=== PATIENT | male | born 1970 | race Caucasian/White ===

== ENCOUNTER → 2020-01-29 12:29 | Outpatient (ROUT) | payer OTHER, SELFPAY ==
[2020-01-29 12:45] LABS: Alanine Aminotransferase 43 IU/L (<50); Aspartate Aminotransferase 33 IU/L (17-59); Estimated Glomerular Filt Rate > 60.0 mL/min (>60)
[2020-01-29 12:50] LABS: Vancomycin Trough 8.3 ug/mL (10-20)
== END ==
PROVIDERS: PCP Specialist; Visit Provider Internal Medicine
DX: I33.0 Acute and subacute infective endocarditis (principal); T80.211A Bloodstream infection due to central venous catheter, initial encounter
CPT/HCPCS: 80202; 82565; 84450; 84460

== ENCOUNTER → 2020-02-05 13:02 | Outpatient (ROUT) | payer OTHER, SELFPAY ==
[2020-02-05 13:17] LABS: Add Manual Diff / Slide Review NO; Basophils Absolute Auto 0 /uL (0-100); Basophils Percent Auto 0.5 % (0-2); Eosinophils Absolute Auto 100 /uL (0-450); Eosinophils Percent Auto 4.1 % (2-4); Hemoglobin 12.2 g/dL (13.5-17.5); Lymphocytes Absolute Auto 600 /uL (1100-4500); Lymphocytes Percent Auto 26.9 % (25-40); Monocytes Absolute Auto 500 /uL (0-900); Monocytes Percent Auto 23.4 % (3-14); Neutrophils Absolute Auto 900 /uL (1500-7000); Neutrophils Percent Auto 45.1 % (50-75); Platelet Count 185 X10^3/uL (150-400); Red Blood Cell Count 4.21 X10^6/uL (4.5-5.9); Red Cell Distribution Width 14.6 % (11.6-14.8); White Blood Cell Count 2.1 X10^3/uL (4.5-11.0)
== END ==
PROVIDERS: PCP Specialist; Visit Provider Internal Medicine
DX: I33.0 Acute and subacute infective endocarditis (principal); T80.211A Bloodstream infection due to central venous catheter, initial encounter
CPT/HCPCS: 85025

== ENCOUNTER 2020-05-31 21:22 | Emergency (ER) | payer OTHER, SELFPAY ==
[2020-05-31 21:43] VITALS: BP 120/69; PULSE 80; RESP 15; TEMP 36.9; O2SAT 97; BMI 27.9
--- NOTE | 2020-05-31 22:04 | DI.CT.S_ITS ---
PROCEDURE: CT HEAD/BRAIN WO CON INDICATIONS: hit head on coumadin TECHNIQUE: Noncontrast 4.5 mm thick angled axial sections acquired from the foramen magnum to the vertex, with coronal and sagittal reformats. For radiation dose reduction, the following was used: automated exposure control, adjustment of mA and/or kV according to patient size. COMPARISON: None. FINDINGS: Image quality: Excellent. CSF spaces: Basal cisterns are patent. No extra-axial fluid collections. Ventricles are normal in size and shape. Brain: No midline shift. No intracranial masses or hemorrhage. Ortega-white matter interface is normal. Skull and face: Calvarium and visualized facial bones are intact, without suspicious lesions. Sinuses: Visualized sinuses and mastoids are clear. IMPRESSION: No acute intracranial abnormality. No significant discrepancy with the mini shifter radiology preliminary report. Dictated by: Hedy Clements M.D. on 06/01/2020 at 7:13 Approved by: Hedy Clements M.D. on 06/01/2020 at 7:14
[2020-05-31 22:20] LABS: INR 1.9 (0.9-1.3); Prothrombin Time 21.6 SECONDS (10.1-12.7)
[2020-05-31 23:19] VITALS: PULSE 64; O2SAT 99
[2020-05-31 23:30] VITALS: BP 111/63; PULSE 70; RESP 13; O2SAT 97
--- NOTE | 2020-06-01 06:48 | ED_ITS ---
HPI - Head Injury General Chief complaint: Head Injury Stated complaint: hit head, on blood thinners, post mult heart surg Time Seen by Provider: 05/31/20 21:23 Source: patient Mode of arrival: Ambulatory Limitations: no limitations History of Present Illness HPI Narrative: 49-year-old male nonsmoker on Coumadin for a mechanical valve presents for evaluation of an accidental head injury just prior to arrival. He stood up too quickly and struck his head on the cabinetry and developed a small goose egg. He has full recall and denies any loss of consciousness nor nausea or vomiting. He denies any neurologic symptoms such as blurred vision, trouble with speech or numbness, tingling or weakness. He denies any other injury. MD Complaint: head injury Onset (ago): hour(s) Mechanism of Injury: other Place: home Loss of Consciousness: no Location of injury: parietal Severity: mild Quality: aching Radiation: none Other Injuries: none Context: on warfarin Associated symptoms: denies other symptoms Related Data Home Medications Medication Instructions Recorded Confirmed amlodipine [Norvasc] 5 mg PO QPM #0 05/30/17 ascorbic acid (vitamin C) 500 mg PO QPM #0 05/30/17 metoprolol succinate [Toprol XL] 12.5 mg PO QPM #0 05/30/17 multivitamin [Multiple Vitamins] 1 tab PO QPM #0 05/30/17 omega 4-git-wsb-fish oil [Fish Oil] 1,000 mg PO QPM #0 05/30/17 vitamin B complex [B 1 tab PO QPM #0 05/30/17 Complex-Vitamin B12] Allergies Allergy/AdvReac Type Severity Reaction Status Date / Time vancomycin AdvReac Verified 05/31/20 21:48 Review of Systems Constitutional Constitutional: Denies chills, Denies fatigue, Denies fever(s), Denies frequent falls, Denies lethargy and Denies weakness Eyes Eyes: Denies change in vision, Denies eye discharge, Denies irritation and Denies loss of vision ENT Ears, Nose, Mouth, and Throat: Denies change in voice, Denies dizziness, Denies neck pain, Denies sore throat and Denies throat swelling Cardiovascular Cardiovascular: Denies chest pain, Denies irregular heart rhythm, Denies lightheadedness, Denies palpitations, Denies dyspnea, Denies dyspnea on exertion and Denies orthopnea Respiratory Respiratory: Denies cough, Denies dyspnea, Denies dyspnea on exertion and Denies wheezing Gastrointestinal Gastrointestinal: Denies abdominal pain, Denies change in bowel habits, Denies diarrhea, Denies nausea and Denies vomiting Musculoskeletal Musculoskeletal: Denies neck pain and Denies numbness Integumentary/Breasts Skin/Breast: Denies pruritus, Denies erythema, Denies rash, Reports skin swelling and Denies wounds Neurologic Neurologic: Denies behavioral changes, Denies confusion, Denies dizziness, Denies frequent falls, Denies loss of vision, Denies numbness and Denies weakness Psychiatric Psychiatric: Denies anxiety, Denies behavioral changes, Denies confusion, Denies depression, Denies homicidal ideation and Denies suicidal ideation Endocrine Endocrine: Denies fatigue, Denies flushing and Denies palpitations Hematologic/Lymphatic Hematologic/Lymphatic: Denies easy bruising Allergic/Immunologic Allergic/Immunologic: Denies urticaria, Denies throat swelling and Denies wheezing Patient History Social History Smoking Status: Never smoker Smoking Status: Never smoker alcohol intake frequency: a few times a month Substance Use Type: does not use Exam Narrative Exam Narrative: GEN: AOx3 and in mild distress, GCS 15 HEAD: small contusion noted on R parietal region. No abrasion or laceration. No evidence of depressed skull fracture EYES: Pupils are equal, round, and reactive to light and accommodation. Extraoccular muscles are intact bilaterally. There is no subconjunctival hemorrhage or exudate. CHEST: Lungs are clear to auscultation bilaterally and free of wheezes, rales, or rhonchi. Heart rate is regular rhythm, there are no murmurs, clicks, rubs, or gallops. There is no chest wall tenderness. ABD: Abdomen is soft and nontender. There is no guarding or rebound. Bowel sounds are normal in all 4 quadrants. There is no mass or organomegaly. EXT: Full painless ROM of all extremities with no loss of sensation or strength. SKIN: Warm, pink, and dry. No erythema or rash Initial Vital Signs Initial Vital Signs: Vital Signs Temperature 98.5 F 05/31/20 21:43 Pulse Rate 80 05/31/20 21:43 Respiratory Rate 15 11/17/20 21:43 Blood Pressure 120/69 11/17/20 21:43 Pulse Oximetry 97 05/31/20 21:43 Course Orders Ordered: ED Orders 05/31/20 22:04 CT head/brain wo con Stat 05/31/20 22:05 Prothrombin Time INR Stat Vital Signs Vital signs: Vital Signs - 8 hr 05/31/20 23:19 05/31/20 23:30 Pulse Rate 64 70 Respiratory Rate 13 Blood Pressure 111/63 Pulse Oximetry 99 97 MDM - Head Injury Lab Data Labs: Lab Results 05/31/20 Range/Units 22:05 PT 21.6 H (10.1-12.7) SECONDS INR 1.9 H (0.9-1.3) Imaging Data CT scan - head: Radiologist's Impression: No bleed Discharge Plan Departure Patient Disposition: Home Clinical Impression: Elevated INR (international normalized ratio) due to prior anticoagulant medication ingestion Contusion of scalp Qualifiers: Encounter type: initial encounter Qualified Code(s): S00.03XA - Contusion of s calp, initial encounter Instructions: DI for Contusion Activity Restrictions/Additional Instructions: *You have been diagnosed with [minor scalp contusion while on Coumadin. Your CT scan was very reassuring. Today's INR is 1.9] *What to do: *Continue to take medications as directed *Follow up with your primary care provider in 2-3 days, call for an appointment. Let them know you were seen in the Emergency Department and that we ask that you be seen in follow up *Return to ER if you should have any new, worsening or concerning symptoms, such as [increasing head pain, persistent vomiting, neurologic symptoms such as blurred vision, trouble with speech or numbness and tingling of your extremities.] Prescriptions: No Action amlodipine [Norvasc] 5 MG tablet 5 mg PO QPM Qty: 0 RF: 0 metoprolol succinate [Toprol XL] 25 MG tablet extended release 24 hr 12.5 mg PO QPM Qty: 0 RF: 0 multivitamin [Multiple Vitamins] 1 EACH tablet 1 tab PO QPM Qty: 0 RF: 0 ascorbic acid (vitamin C) 500 MG tablet 500 mg PO QPM Qty: 0 RF: 0 vitamin B complex [B Complex-Vitamin B12] 1 EACH tablet 1 tab PO QPM Qty: 0 RF: 0 omega 1-lzj-lhx-fish oil [Fish Oil] 1,000 MG capsule 1,000 mg PO QPM Qty: 0 RF: 0 Referrals: Herbie Figueroa MD [Primary Care Provider] -
== END 2020-05-31 23:55 | disposition home or self-care (01) ==
PROVIDERS: Emergency Provider Emergency Medicine; PCP Specialist
DX: S00.03XA Contusion of scalp, initial encounter (principal); R79.1 Abnormal coagulation profile; Z95.5 Presence of coronary angioplasty implant and graft; Z79.01 Long term (current) use of anticoagulants; W22.8XXA Striking against or struck by other objects, initial encounter
CPT/HCPCS: 70450; 85610; 99281; 99284

== ENCOUNTER 2020-10-01 18:04 | Emergency (ER) | payer OTHER, SELFPAY ==
--- NOTE | 2020-10-01 18:07 | DI.CT.S_ITS ---
PROCEDURE: CT HEAD/BRAIN WO CON INDICATIONS: fall, hit head on thinners TECHNIQUE: Noncontrast 4.5 mm thick angled axial sections acquired from the foramen magnum to the vertex, with coronal and sagittal reformats. For radiation dose reduction, the following was used: automated exposure control, adjustment of mA and/or kV according to patient size. COMPARISON: [facility], CT, CT HEAD/BRAIN WO CON, 05/31/2020, 22:09. FINDINGS: Image quality: Excellent. CSF spaces: Basal cisterns are patent. No extra-axial fluid collections. Ventricles are normal in size and shape. Brain: No midline shift. No intracranial masses or hemorrhage. Ortega-white matter interface is normal. Skull and face: Calvarium and visualized facial bones are intact, without suspicious lesions. Sinuses: Visualized sinuses and mastoids are clear. IMPRESSION: No acute intracranial finding. Dictated by: Nas Avila M.D. on 10/01/2020 at 18:27 Approved by: Nas Avila M.D. on 10/01/2020 at 18:28
--- NOTE | 2020-10-01 18:11 | ED.HEATRA ---
HPI - Head Injury General Chief complaint: Fall Stated complaint: hit head, on thinners Time Seen by Provider: 10/01/20 18:06 Source: patient Mode of arrival: Ambulatory Limitations: no limitations History of Present Illness HPI Narrative: 50-year-old male nonsmoker on Coumadin presents for evaluation of a head injury suffered just prior to arrival. He had his INR checked last night it was 1.7. He was working on a boat when the nguyen slammed into his head and he now has pain on his right parietal region. He denies any loss of consciousness, blurred vision nor numbness or tingling. He denies any neck pain. He's otherwise fine and well. He is activated as a modified trauma due to head injury on coumadin. Related Data Home Medications Medication Instructions Recorded Confirmed amlodipine [Norvasc] 5 mg PO QPM #0 05/30/17 ascorbic acid (vitamin C) 500 mg PO QPM #0 05/30/17 metoprolol succinate [Toprol XL] 12.5 mg PO QPM #0 05/30/17 multivitamin [Multiple Vitamins] 1 tab PO QPM #0 05/30/17 omega 8-bzt-gtb-fish oil [Fish Oil] 1,000 mg PO QPM #0 05/30/17 vitamin B complex [B 1 tab PO QPM #0 05/30/17 Complex-Vitamin B12] Allergies Allergy/AdvReac Type Severity Reaction Status Date / Time vancomycin AdvReac Severe Redness of Verified 10/01/20 18:15 Skin Review of Systems Constitutional Constitutional: Denies chills, Denies fatigue, Denies fever(s), Denies frequent falls, Reports headache(s), Denies lethargy and Denies weakness Eyes Eyes: Denies change in vision, Denies eye discharge, Denies irritation and Denies loss of vision ENT Ears, Nose, Mouth, and Throat: Denies change in voice, Denies dizziness, Reports headache(s), Denies neck pain, Denies sore throat and Denies throat swelling Cardiovascular Cardiovascular: Denies chest pain, Denies irregular heart rhythm, Denies lightheadedness, Denies palpitations, Denies dyspnea, Denies dyspnea on exertion and Denies orthopnea Respiratory Respiratory: Denies cough, Denies dyspnea, Denies dyspnea on exertion and Denies wheezing Gastrointestinal Gastrointestinal: Denies abdominal pain, Denies change in bowel habits, Denies diarrhea, Denies nausea and Denies vomiting Musculoskeletal Musculoskeletal: Denies neck pain and Denies numbness Integumentary/Breasts Skin/Breast: Denies pruritus, Denies erythema, Denies rash and Denies wounds Neurologic Neurologic: Denies behavioral changes, Denies confusion, Denies dizziness, Denies frequent falls, Reports headache(s), Denies loss of vision, Denies numbness and Denies weakness Psychiatric Psychiatric: Denies anxiety, Denies behavioral changes, Denies confusion, Denies depression, Denies homicidal ideation and Denies suicidal ideation Endocrine Endocrine: Denies fatigue, Denies flushing and Denies palpitations Hematologic/Lymphatic Hematologic/Lymphatic: Denies easy bruising Allergic/Immunologic Allergic/Immunologic: Denies urticaria, Denies throat swelling and Denies wheezing Patient History Social History Smoking Status: Never smoker Smoking Status: Never smoker alcohol intake frequency: a few times a month Substance Use Type: does not use Exam Narrative Exam Narrative: GENERAL: [50] year old patient appears stated age. Well-nourished, well-developed patient, in mild distress. GCS 15 HEAD: Mild palpable contusion R parietal region. No depressed skull fracture. EYES: Pupils equal round and reactive. Extraocular motions intact. No scleral icterus. No injection or drainage. ENT: Nose without bleeding, purulent drainage. Throat without erythema, tonsillar hypertrophy or exudate. Airway patent. NECK: Trachea midline. Non tender CARDIOVASCULAR: Regular rate and rhythm without murmurs, gallops, or rubs. RESPIRATORY: Clear to auscultation. Breath sounds equal bilaterally. No wheezes, rales, or rhonchi. GASTROINTESTINAL: Abdomen soft, non-tender, nondistended. EXTREMITIES: No edema or joint tenderness. BACK: Nontender without deformity or crepitance. No flank tenderness. NEURO: AOx3. SKIN: No rash or erythema of visible areas Initial Vital Signs Initial Vital Signs: Vital Signs Pulse Rate 89 10/01/20 18:13 Respiratory Rate 18 10/01/20 18:13 Blood Pressure 146/87 H 10/01/20 18:13 Pulse Oximetry 99 10/01/20 18:13 Course Orders Ordered: ED Orders 10/01/20 18:07 CT head/brain wo con Stat 10/01/20 18:30 Hemoglobin and Hematocrit Stat Prothrombin Time INR Stat Vital Signs Vital signs: Vital Signs - 8 hr 10/01/20 18:13 10/01/20 18:26 10/01/20 18:58 Temperature 97.8 F Pulse Rate 89 81 Respiratory Rate 18 18 Blood Pressure 146/87 H 118/71 Pulse Oximetry 99 97 MDM - Head Injury Lab Data Result diagrams: 10/01/20 18:30 Labs: Lab Results 10/01/20 10/01/20 Range/Units 18:30 18:30 Hgb 13.9 (13.5-17.5) g/dL Hct 39.8 L (41-53) % PT 19.0 H (10.1-12.7) SECONDS INR 1.7 H (0.9-1.3) Imaging Data CT scan - head: Radiologist's Impression: [address] [id number] Scan ReportSigned Patient: Marquis Sage LMR#: [id number]: [id number]:[id number]/Sex: 50 / MDate of Service: 10/01/20Loc: EDAccession Number: [id number] Procedure: CT head/brain wo con Ordering Provider: Oscar Cordero D.O. PROCEDURE: CT HEAD/BRAIN WO CON INDICATIONS: fall, hit head on thinners TECHNIQUE: Noncontrast 4.5 mm thick angled axial sections acquired from the foramen magnum to the vertex, with coronal and sagittal reformats. For radiation dose reduction, the following was used: automated exposure control, adjustment of mA and/or kV according to patient size. COMPARISON: [facility], CT, CT HEAD/BRAIN WO CON, 05/31/2020, 22:09. FINDINGS: Image quality: Excellent. CSF spaces: Basal cisterns are patent. No extra-axial fluid collections. Ventricles are normal in size and shape. Brain: No midline shift. No intracranial masses or hemorrhage. Ortega-white matter interface is normal. Skull and face: Calvarium and visualized facial bones are intact, without suspicious lesions. Sinuses: Visualized sinuses and mastoids are clear. IMPRESSION: No acute intracranial finding. Dictated by: Nas Avila M.D. on 10/01/2020 at 18:27 Approved by: Nas Avlia M.D. on 10/01/2020 at 18:28 Discharge Plan Departure Patient Disposition: Home Clinical Impression: Contusion of scalp Qualifiers: Encounter type: initial encounter Qualified Code(s): S00.03XA - Contusion of scalp, initial encounter Instructions: Contusion Activity Restrictions/Additional Instructions: *You have been diagnosed with [ minor head injury while on coumadin. Labs and imaging are reassuring ] *What to do: *Take medications as directed *Follow up with your primary care provider in 2-3 days, call for an appointment. Let them know you were seen in the Emergency Department and that we ask that you be seen in follow up *Return to ER if you should have any new, worsening or concerning symptoms, such as [confusion, trouble with vision, speech or other neurologic symptoms ] Prescriptions: No Action amlodipine [Norvasc] 5 MG tablet 5 mg PO QPM Qty: 0 RF: 0 metoprolol succinate [Toprol XL] 25 MG tablet extended release 24 hr 12.5 mg PO QPM Qty: 0 RF: 0 multivitamin [Multiple Vitamins] 1 EACH tablet 1 tab PO QPM Qty: 0 RF: 0 ascorbic acid (vitamin C) 500 MG tablet 500 mg PO QPM Qty: 0 RF: 0 vitamin B complex [B Complex-Vitamin B12] 1 EACH tablet 1 tab PO QPM Qty: 0 RF: 0 omega 5-wev-mzc-fish oil [Fish Oil] 1,000 MG capsule 1,000 mg PO QPM Qty: 0 RF: 0 Referrals: Herbie Figueroa MD [Primary Care Provider] -
[2020-10-01 18:13] VITALS: BP 146/87; PULSE 89; RESP 18; O2SAT 99; BMI 28.2
[2020-10-01 18:26] VITALS: TEMP 36.6
[2020-10-01 18:58] VITALS: BP 118/71; PULSE 81; RESP 18; O2SAT 97
[2020-10-01 18:58] LABS: Hematocrit 39.8 % (41-53); Hemoglobin 13.9 g/dL (13.5-17.5)
--- NOTE | 2020-10-01 18:58 | PC.NURSE ---
No visible signs of injury, denies LOC
[2020-10-01 19:02] LABS: INR 1.7 (0.9-1.3)
== END 2020-10-01 18:59 | disposition home or self-care (01) ==
PROVIDERS: Emergency Provider Emergency Medicine; PCP Specialist
DX: S00.03XA Contusion of scalp, initial encounter (principal); W22.8XXA Striking against or struck by other objects, initial encounter; Z79.01 Long term (current) use of anticoagulants
CPT/HCPCS: 36415; 70450; 85014; 85018; 85610; 99284

== ENCOUNTER 2023-02-28 16:42 | Emergency (ER) | payer OTHER, SELFPAY ==
[2023-02-28 16:53] VITALS: BP 129/76; PULSE 78; RESP 14; TEMP 37; O2SAT 97; BMI 29.8
--- NOTE | 2023-02-28 17:06 | DI.CT.S_ITS ---
PROCEDURE: CT HEAD/BRAIN WO CON INDICATIONS: hit head, on thinners TECHNIQUE: Noncontrast 4.5 mm thick angled axial sections acquired from the foramen magnum to the vertex, with coronal and sagittal reformats. For radiation dose reduction, the following was used: automated exposure control, adjustment of mA and/or kV according to patient size. COMPARISON: [facility], CT, CT HEAD/BRAIN WO CON, 10/01/2020, 18:12. FINDINGS: Image quality: Excellent. CSF spaces: Basal cisterns are patent. No extra-axial fluid collections. Ventricles are normal in size and shape. Brain: No midline shift. No intracranial masses or hemorrhage. Ortega-white matter interface is normal. Skull and face: Calvarium and visualized facial bones are intact, without suspicious lesions. Sinuses: Visualized sinuses and mastoids are clear. IMPRESSION: No acute intracranial pathology. Dictated by: León Giang M.D. on 02/28/2023 at 17:40 Approved by: León Giang M.D. on 02/28/2023 at 17:42
[2023-02-28 17:32] LABS: INR 2.2 (0.9-1.3); Prothrombin Time 25.3 SECONDS (10.1-12.7)
--- NOTE | 2023-02-28 20:14 | ED_ITS ---
HPI - Head Injury General Chief complaint: Head Injury Stated complaint: hit in head, on thinners Time Seen by Provider: 02/28/23 20:01 Source: patient Mode of arrival: Ambulatory Limitations: no limitations History of Present Illness HPI Narrative: Patient is a 52-year-old male. He is on anticoagulation secondary to an artificial heart valve. He states that he hit his head on a branch. He thinks that he potentially cut the top of his head. There was no loss of consciousness. He was told that if he ever hit his head while on the anticoagulation that he needs to be evaluated. He denies any headaches. No bleeding. Related Data Home Medications Medication Instructions Recorded Confirmed amlodipine 5 mg tablet (Norvasc) 5 mg PO QPM ##0 05/30/17 ascorbic acid (vitamin C) 500 mg 500 mg PO QPM ##0 05/30/17 tablet metoprolol succinate 25 mg 12.5 mg PO QPM ##0 05/30/17 tablet,extended release 24 hr (Toprol XL) multivitamin (Multiple Vitamins 1 tab PO QPM ##0 05/30/17 tablet) omega 3-lmw-ngs-fish oil 1,000 mg 1,000 mg PO QPM ##0 05/30/17 (120 mg-180 mg) capsule (Fish Oil) vitamin B complex (B 1 tab PO QPM ##0 05/30/17 Complex-Vitamin B12 tablet) Allergies Allergy/AdvReac Type Severity Reaction Status Date / Time vancomycin AdvReac Severe Redness of Verified 10/01/20 18:15 Skin Review of Systems Constitutional Constitutional: Reports system reviewed and no additional complaints, except as documented Integumentary/Breasts Skin/Breast: Reports system reviewed and no additional complaints, except as documented Hematologic/Lymphatic On Anticoagulants: Yes Patient History Social History Smoking Status: Never smoker Smoking Status: Never smoker alcohol intake frequency: a few times a month Substance Use Type: does not use Exam Initial Vital Signs Initial Vital Signs: Vital Signs Temperature 98.6 F 02/28/23 16:53 Pulse Rate 78 02/28/23 16:53 Respiratory Rate 14 02/28/23 16:53 Blood Pressure 129/76 02/28/23 16:53 Pulse Oximetry 97 02/28/23 16:53 Oxygen Delivery Method Room Air 02/28/23 16:53 [facility] Head: abrasion (On top of his head) Skin Other: Abrasion on the top of his head. Neuro General: patient alert, patient awake and patient oriented x3 Extrem General: capillary refill normal Course Orders Ordered: ED Orders 02/28/23 17:06 CT head/brain wo con Stat 02/28/23 17:16 PT [Prothrombin Time INR] Stat Vital Signs Vital signs: Vital Signs - 8 hr 02/28/23 16:53 Temperature 98.6 F Pulse Rate 78 Respiratory Rate 14 Blood Pressure 129/76 Pulse Oximetry 97 Oxygen Delivery Method Room Air MDM - Head Injury Lab Data Attestation: I reviewed the patient's lab results. Labs: Lab Results 02/28/23 Range/Units 17:16 PT 25.3 H (10.1-12.7) SECONDS INR 2.2 H (0.9-1.3) Imaging Data CT scan - head: Radiologist's Impression: PROCEDURE:? CT HEAD/BRAIN WO CON ? INDICATIONS:? hit head, on thinners ? TECHNIQUE:? Noncontrast 4.5 mm thick angled axial sections acquired from the foramen magnum to the vertex, with coronal and sagittal reformats.? For radiation dose reduction, the following was used:? automated exposure control, adjustment of mA and/or kV according to patient size.? ? COMPARISON:? [facility], CT, CT HEAD/BRAIN WO CON, 10/01/2020, 18:12. ? FINDINGS:? Image quality:? Excellent.? ? CSF spaces:? Basal cisterns are patent.? No extra-axial fluid collections.? Ventricles are normal in size and shape.? ? Brain:? No midline shift.? No intracranial masses or hemorrhage.? Ortega-white matter interface is normal.? ? Skull and face:? Calvarium and visualized facial bones are intact, without suspicious lesions.? ? Sinuses:? Visualized sinuses and mastoids are clear.? ? IMPRESSION:? No acute intracranial pathology.? [facility] Narrative Medical decision making narrative: Head CT shows no acute pathology. He is a superficial abrasion on the top of his head requiring no specific intervention here in the ER. Had a discussion with him regarding his head injury. Will discharge patient home with return precautions. He expressed understanding and agreement. Discharge Plan Departure Patient Disposition: Home Clinical Impression: Abrasion of scalp, Closed head injury Instructions: DI for Abrasion Activity Restrictions/Additional Instructions: I recommend that you continue to take all your medications as directed. Contact your primary doctor for follow-up. Return to the emergency department for new symptoms. Prescriptions: No Action amlodipine [Norvasc] 5 MG tablet 5 mg PO QPM Qty: 0 metoprolol succinate [Toprol XL] 25 MG tablet extended release 24 hr 12.5 mg PO QPM Qty: 0 multivitamin [Multiple Vitamins] 1 EACH tablet 1 tab PO QPM Qty: 0 ascorbic acid (vitamin C) 500 MG tablet 500 mg PO QPM Qty: 0 vitamin B complex [B Complex-Vitamin B12] 1 EACH tablet 1 tab PO QPM Qty: 0 omega 4-hdk-cfd-fish oil [Fish Oil] 1,000 MG capsule 1,000 mg PO QPM Qty: 0 Referrals: Herbie Figueroa MD [Primary Care Provider] - Stand Alone Forms: Patient Portal/API
== END 2023-02-28 20:31 | disposition home or self-care (01) ==
PROVIDERS: Emergency Medicine; Emergency Provider Emergency Medicine; PCP Specialist
DX: S00.01XA Abrasion of scalp, initial encounter (principal); S09.90XA Unspecified injury of head, initial encounter; Z95.2 Presence of prosthetic heart valve; Z79.01 Long term (current) use of anticoagulants; W22.8XXA Striking against or struck by other objects, initial encounter
CPT/HCPCS: 36415; 70450; 85610; 99283; 99284